=== PATIENT | female | born 2000 | race Caucasian/White ===

== ENCOUNTER 2025-06-04 18:44 | Emergency (ER) | payer MEDICAID, SELFPAY ==
[2025-06-04 18:48] VITALS: BP 111/96; PULSE 98; TEMP 37.3; O2SAT 99; BMI 36.1
--- NOTE | 2025-06-04 19:17 | ED.GENADUL1 ---
HPI HPI - General Adult General Chief complaint: Eye Problems Stated complaint: Double vision Time Seen by Provider: 06/04/25 19:17 Source: patient Mode of arrival: walk-in History of Present Illness HPI narrative: Patient is a 25-year-old female that presents with complaints of double vision when she looks at a distance and also to the left that started on Monday. She denies any head trauma. She does have a history of migraines. She has had progressive dizziness that started around the time of the double vision. She is starting to get a headache from the double vision and dizziness. She did see an eye doctor today who referred her to a specialist in [place], [place], Dr. Gonzalez. She wanted her to see him tomorrow but he does not have an opening for a few weeks. Related Data Allergies Allergy/AdvReac Type Severity Reaction Status Date / Time erythromycin base Allergy Severe Rash Verified 06/04/25 18:55 Penicillins Allergy Severe Rash Verified 06/04/25 18:55 Review of Systems ROS Status of ROS 10 or more systems reviewed and unremarkable except as noted in history and below PFSH PFSH Social History Little interest or pleasure in doing things: not at all Feeling down, depressed, or hopeless: not at all Exam Narrative Exam Narrative: General: No distress, age-appropriate Skin: Warm, dry, no pallor. No rash. Head: Normocephalic, atraumatic. Neck: Supple, non-tender. Eye: Pupils are equal, round and EOMI. No scleral icterus. Ears, Nose, Mouth, and Throat: No nasal mucosal hypertrophy. Oral mucosa is moist, no posterior oropharynx erythema, uvula is mid-line Cardiovascular: Regular Rate and Rhythm without murmur, gallop or rub. Respiratory: No accessory muscle use or respiratory distress. Lungs are clear to auscultation, no wheezing, rales or rhonchi Chest Wall: no tenderness Musculoskeletal: Full ROM of all extremities, no calf or popliteal tenderness GI: Abdomen is soft, non-distended, non tender to palpation. No masses appreciated. No rebound, guarding, or rigidity noted. Neurological: A&O x4. No cranial nerve dysfunction observed. No truncal ataxia. Moves all extremities. Sensation intact. Psychiatric: Cooperative and interactive. Normal mood and affect. Constitutional Vital Signs, click to edit/add: Last Vital Signs Temp 99.1 F 06/04/25 18:48 Pulse 98 H 06/04/25 18:48 Resp 18 06/04/25 18:48 BP 111/96 H 06/04/25 18:48 Pulse Ox 99 06/04/25 18:48 O2 Del Method Room Air 06/04/25 18:48 Course Vital Signs Vital signs: Vital Signs Temperature 99.1 F 06/04/25 18:48 Pulse Rate 98 H 06/04/25 18:48 Respiratory Rate 18 06/04/25 18:48 Blood Pressure 111/96 H 06/04/25 18:48 Pulse Oximetry 99 06/04/25 18:48 Oxygen Delivery Method Room Air 06/04/25 18:48 Temperature 99.1 F 06/04/25 18:48 Pulse Rate 98 H 06/04/25 18:48 Respiratory Rate 18 06/04/25 18:48 Blood Pressure 111/96 H 06/04/25 18:48 Pulse Oximetry 99 06/04/25 18:48 Oxygen Delivery Method Room Air 06/04/25 18:48 Medical Decision Making [facility] Narrative Medical decision making narrative: 25-year-old female presents to ED with complaints of diplopia and progressive dizziness for 2 days. The diplopia is when looking to the left or at distant objects. Exam revealed that the left eye drifts inward slightly during near fixation but tracks normally with full extraocular movements; no ptosis or other neurologic deficits were noted. Workup in the ED included CT head (negative), CBC and BMP (within normal limits), and hCG (negative). No acute intracranial, orbital, or systemic abnormalities were identified. Given the intermittent nature of symptoms, normal labs and imaging, and otherwise stable presentation, emergent pathology is unlikely. Patient was discharged in stable condition with instructions for close ophthalmology follow-up and advised to return for any worsening diplopia, new neurologic deficits, vision changes, or headache progression. Differential Diagnosis Differential Diagnosis: Myasthenia gravis, Convergence spasm, Mild CN IV palsy Lab Data Lab results reviewed: Yes I reviewed the patient's lab results Labs: Lab Results 06/04/25 Range/Units 19:44 WBC 10.5 (4.0-11.0) 10^3/uL RBC 5.31 (4.20-5.40) 10^6/uL Hgb 15.4 (12.0-16.0) g/dL Hct 45.6 (36.0-48.0) % MCV 85.9 (81.0-99.0) fL MCH 29.0 (26.7-34.0) pg MCHC 33.8 (29.9-35.2) g/dL RDW 12.4 (11.0-15.0) % Plt Count 322 (150-450) 10^3/uL MPV 10.7 (9.5-13.5) fL Neut % (Auto) 54.8 (43.0-75.0) % Lymph % (Auto) 36.8 (20.5-60.0) % [place] % (Auto) 4.7 (1.7-12.0) % Eos % (Auto) 3.0 (0.9-7.0) % Baso % (Auto) 0.5 (0.2-2.0) % Neut # (Auto) 5.8 (1.4-6.5) 10^3/uL Lymph # (Auto) 3.9 H (1.2-3.8) 10^3/uL [place] # (Auto) 0.5 (0.3-0.8) 10^3/uL Eos # (Auto) 0.3 (0.0-0.7) 10^3/uL Baso # (Auto) 0.1 (0.0-0.1) 10^3/uL Abs Immat Gran (auto) 0.02 (0.00-0.03) 10^3/uL Imm/Tot Granulo (auto) 0.2 (0.0-0.5) % Sodium 140 (136-145) mmol/L Potassium 3.5 (3.5-5.1) mmol/L Chloride 104 (98-107) mmol/L Carbon Dioxide 26.6 (21.0-32.0) mmol/L Anion Gap 12.9 BUN 21.0 H (7.0-18.0) mg/dL Creatinine 0.90 (0.55-1.02) mg/dL Est GFR ( Amer) >60 (>=60 mL/min/1.73m^2) Est GFR (Non-Af Amer) >60 (>=60 mL/min/1.73m^2) BUN/Creatinine Ratio 23.3 Glucose 106 (74-106) mg/dL Calcium 9.0 (8.5-10.1) mg/dL Serum HCG, Qual Negative (NEGATIVE) Imaging Data CT scan - head: Attestation: I have reviewed the pertinent imaging results. Radiologist's impression: ITS Impressions Head CT 06/04/25 19:28 IMPRESSION: No acute findings. Impression dictated by: Frank Tidwell M.D. 06/04/2025 8:33 PM Dictation Location: [facility] Electronically authenticated by: [id number] Y Date: 06/04/2025 20:33 Discharge Plan Discharge Chief Complaint: Eye Problems Clinical Impression: Diplopia Patient Disposition: Home, Self-Care Time of Disposition Decision: 21:00 Condition: Good Mode of Transportation: Private Vehicle Print Language: [place]araguan Instructions: Diplopia (ED) Additional Instructions: Symptoms and Warning Signs ? Seek Immediate Care Go to the nearest ER or call 911 if you develop any of the following: Sudden severe headache (?worst headache of your life?) Drooping eyelid, unequal pupils, or vision loss Weakness, numbness, tingling, or trouble speaking Loss of balance, new falls, or severe dizziness Persistent vomiting Worsening or rapidly progressing double vision Referrals: JASWINDER WSIE [Physician, Family Practice] - 1 week Discharge Date/Time: 06/04/25 21:07
--- NOTE | 2025-06-04 19:28 | CT_ITS ---
The [address] [address] Patient Name: ROCÍO PINEDA MRN: [id number] date: 2000 Sex: F Assigned Patient Location: ER Current Patient Location: ED.MAIN Accession/Order Number: [id number] Exam Date: 06/04/2025 20:08 Report Date: 06/04/2025 20:33 At the request of: SANAZ SUN Procedure: CT head/brain wo con Unenhanced head CT TECHNIQUE: Contiguous axial imaging of the head. The CT exam was performed using one or more the following dose reduction techniques: Automated exposure control, adjustment of the MA and/or Kv according to patient size, or use of the iterative reconstruction technique. COMPARISON: 11/15/2018 HISTORY: Double vision for 3 days. VENTRICLES: Within normal limits ATROPHY: None BRAIN PARENCHYMA: Adequate pyle-white matter differentiation identified. HEMORRHAGE: None HERNIATION: No mass effect or herniation INFARCTION: No recent vascular distribution infarction is seen. EXTRA-AXIAL FLUID COLLECTIONS None MIDBRAIN: Unremarkable SOURAV: Unremarkable MEDULLA: Unremarkable SINUSES: Unremarkable ORBITS: Grossly unremarkable MASTOIDS: Unremarkable BONY STRUCTURES Intact ADDITIONAL FINDINGS: CT/CT head/brain wo con IMPRESSION: No acute findings. Impression dictated by: Frank Tidwell M.D. 06/04/2025 8:33 PM Dictation Location: [place] [address] Electronically authenticated by: [id number] Y Date: 06/04/2025 20:33
--- NOTE | 2025-06-04 19:28 | PC.NURSE ---
pt ambulates with steady gait. no abnormal facial asymmetry observed, speech clear with all 4 extremities ROM wnl.
--- OUTSIDE RECORDS SUMMARY | 2025-06-04 19:48 | XMS_ITS | Clinical Summary ---
Author Organization [facility] Address [address] [place] [address] Care Team Providers Care Crisis Mental Health Therapist Name Role Phone Unavailable Primary Care Provider Unavailabl e Social History Tobacco UseTypesPacks/DayYears UsedDateSmoking Tobacco: Never Assessed CommentsUnknownSex and Gender InformationValueDate RecordedSex Assigned at Not on fileLegal OznCxbcvo49/15/2023 9:31 PM EDTGender IdentityNot on fileSexual OrientationNot on file Plan of Treatment Not on file
[2025-06-04 19:52] LABS: Hematocrit 45.6 % (36.0-48.0); Hemoglobin 15.4 g/dL (12.0-16.0); Immature Granulocytes Abs Auto 0.02 10^3/uL (0.00-0.03); Immature Granulocytes Pct Auto 0.2 % (0.0-0.5); Lymphocytes Absolute Auto 3.9 10^3/uL (1.2-3.8); Mean Corpuscular HGB Conc 33.8 g/dL (29.9-35.2); Mean Corpuscular Hemoglobin 29.0 pg (26.7-34.0); Mean Corpuscular Volume 85.9 fL (81.0-99.0); Platelet Count 322 10^3/uL (150-450); Red Blood Count 5.31 10^6/uL (4.20-5.40); White Blood Count 10.5 10^3/uL (4.0-11.0)
[2025-06-04 20:03] LABS: Anion Gap 12.9; Blood Urea Nitrogen 21.0 mg/dL (7.0-18.0); Calcium 9.0 mg/dL (8.5-10.1); Carbon Dioxide 26.6 mmol/L (21.0-32.0); Chloride 104 mmol/L (98-107); Estimated GFR (African America >60 (>=60 mL/min/1.73m^2); Estimated GFR (Non-African Ame >60 (>=60 mL/min/1.73m^2); Glucose 106 mg/dL (74-106); Potassium 3.5 mmol/L (3.5-5.1); Sodium 140 mmol/L (136-145)
== END 2025-06-04 21:07 | disposition home or self-care (01) ==
PROVIDERS: Physician Assistant; Emergency Provider Emergency Medicine
DX: H53.2 Diplopia (principal)
CPT/HCPCS: 36415; 70450; 80048; 84703; 85025; 99284